=== PATIENT | male | born 1935 | race Caucasian/White ===

== ENCOUNTER 2018-10-14 09:02 | Inpatient (IN) | payer MEDICARE, OTHER ==
[~2018-10-14] VITALS: Ht 177.8 cm; Wt 83.9 kg
[2018-10-14] MEDS ORDERED: SODIUM CHLORIDE 0.9% 1000ML 1,000 ML IV ONE ×3 (10:15→17:45)
[2018-10-14] MEDS ORDERED: DICYCLOMINE HCL 20 MG/2 ML VIAL IM ONE ×2 (10:15→14:30)
[2018-10-14] MEDS ORDERED: ONDANSETRON HCL INJ 2 MG/ML VIAL IV ONE ×2 (10:30→14:30)
[2018-10-14] MEDS ORDERED: PIPER-TAZ 3.375 GM 50 ML IV ONE ×2 (10:30→14:30)
--- NOTE | 2018-10-14 11:28 | Diagnostic Imaging Report ---
Examination: Single AP view of the chest. COMPARISON: None. INDICATION: Preop evaluation, gallbladder inflammation DISCUSSION: The lungs are well-inflated though there is slight right hemidiaphragmatic elevation with linear opacities in the lung bases, right greater than left. No airspace consolidation or sizable pleural effusion. No pneumothorax. Tortuous thoracic aorta with atherosclerotic calcification. Normal heart size without overt pulmonary edema. No acute osseous abnormality. Circular radiopacities projecting over the left upper quadrant may reflect bowel contents. IMPRESSION: Subsegmental atelectasis in the lower lobes. Otherwise no acute cardiopulmonary abnormality. Signed by: Dr. Pio Pedro M.D. on 10/14/2018 11:25 AM
[2018-10-14 11:30] LABS: BASOPHILS % 0.2 % (0.0-1.0); EOSINOPHILS # (AUTO) 0.1 (0.0-0.4); HEMATOCRIT 33.5 % (38.2-49.6); HEMOGLOBIN 11.2 g/dL (14.0-18.0); LYMPHOCYTES # (AUTO) 0.3 (1.0-3.2); LYMPHOCYTES % 2.5 % (18.0-39.1); MEAN CORPUSCULAR HGB CONC 33.4 g/dL (31-35); MEAN CORPUSCULAR VOLUME 101.8 fL (81-99); MONOCYTES # (AUTO) 1.1 (0.2-0.8); NEUTROPHILS # (AUTO) 12.1 (2.1-6.9); NEUTROPHILS % 87.9 % (38.7-80.0); PLATELET COUNT 208 x10e3/uL (140-360); RED BLOOD COUNT 3.29 x10e6/uL (4.3-5.7)
[2018-10-14 11:41] LABS: INR 1.08
[2018-10-14 11:42] LABS: PARTIAL THROMBOPLASTIN TIME 38.3 seconds (23.8-35.5)
[2018-10-14 11:43] LABS: BILIRUBIN,URINE NEGATIVE (NEGATIVE); CLARITY,URINE SL CLOUDY (CLEAR); COLOR,URINE YELLOW (YELLOW); KETONES,URINE NEGATIVE (NEGATIVE); LEUKOCYTE ESTERASE ,URINE NEGATIVE (NEGATIVE); NITRITE,URINE NEGATIVE (NEGATIVE); PROTEIN,URINE DIPSTICK 2+ (NEGATIVE); URINE UROBILINOGEN 0.2 mg/dL (0.2 - 1)
[2018-10-14 11:44] LABS: AMORPHOUS SEDIMENT,URINE MODERATE (FEW); BACTERIA,URINE MANY /HPF; RBC,URINE 0-5 /HPF (0-5)
[2018-10-14 11:52] LABS: ALBUMIN 2.8 g/dL (3.5-5.0); ALBUMIN/GLOBULIN RATIO 0.6 (0.8-2.0); ANION GAP 17.7 mmol/L (8-16); CALCIUM 9.9 mg/dL (8.4-10.2); CREATININE, SERUM 2.04 mg/dL (0.72-1.25); POTASSIUM 3.7 mmol/L (3.5-5.1)
--- NOTE | 2018-10-14 12:07 | Diagnostic Imaging Report ---
EXAM: Right Upper Quadrant Ultrasound INDICATION: ^Cholecystitis COMPARISON: None. TECHNIQUE: Transverse and longitudinal images of the right upper abdomen were obtained. FINDINGS: Liver: Size: 14.5 cm in the right midclavicular line, normal Appearance: Normal echogenicity, smooth contour Mass: No focal masses Gallbladder: Stones/Sludge: 2.4 cm echogenic stone noted in the gallbladder neck. Small amount of intraluminal sludge. Wall: 0.4 cm Appearance: Trace free fluid noted adjacent to the anterior gallbladder wall. Sonographic Don's Sign: Negative Bile Ducts: Intrahepatic Ducts: No dilatation Extrahepatic Ducts: Common bile duct measures 0.3 cm, no dilatation Pancreas: Visualized portions of the pancreatic neck and proximal body are normal. Kidneys: Length: Right 11.7 cm Echogenicity: Normal Collecting System: No hydronephrosis Stone: None Cyst/Mass: 0.8 x 0.6 x 0.8 cm cystic, anechoic lesion in the right interpolar region, consistent with a simple cyst Vessels: Aorta: Visualized portions are normal Inferior Vena Cava: Visualized portions are normal Main Portal Vein: 0.7 cm, normal size with hepatopetal flow. Free Fluid: No ascites or pleural effusion IMPRESSION: 1. Cholelithiasis and sludge with mild gallbladder wall thickening. Sonographic Don's sign is negative in this nonmedicated patient, which speaks against acute cholecystitis. No intra or extrahepatic biliary ductal dilation. Signed by: Dr. Fredy Fernandes M.D. on 10/14/2018 12:03 PM
[2018-10-14] MEDS ORDERED: LIDOCAINE HCL 2% LOCAL INJ 5 ML SDV VIAL INJ ONE (14:16)
[2018-10-14] MEDS ORDERED: DEXAMETHASONE SOD PHOS INJ 4 MG/ML VIAL ONE (14:16)
[2018-10-14] MEDS ORDERED: ONDANSETRON HCL INJ 2 MG/ML VIAL ONE (14:16)
[2018-10-14] MEDS ORDERED: SUCCINYLCHOLINE 200 MG/10 ML SYR ONE (14:16)
[2018-10-14] MEDS ORDERED: ROCURONIUM BROMIDE 10 MG/ML 5ML VIAL ONE (14:16)
[2018-10-14] MEDS ORDERED: LABETALOL HCL 5 MG/ML 20ML VIAL ONE (14:16)
[2018-10-14] MEDS ORDERED: PROPOFOL IV EMULSION 10 MG/ML 20 ML VIAL ONE (14:16)
[2018-10-14] MEDS ORDERED: SEVOFLURANE INHAL SOLN 250 ML PEN BTL ONE (14:16)
[2018-10-14] MEDS ORDERED: NEOSTIGMINE 5 MG/5ML SYR ONE (14:16)
[2018-10-14] MEDS ORDERED: PHENYLEPHRINE HCL 1% 10 MG/ML VIAL ONE (14:16)
[2018-10-14] MEDS ORDERED: GLYCOPYRROLATE INJ 1MG/ 5 ML SYR ONE (14:16)
[2018-10-14] MEDS ORDERED: FOLIC ACID1 MG PO (14:25)
[2018-10-14] MEDS ORDERED: METOPROLOL SUCC50 MG PO (14:25)
[2018-10-14] MEDS ORDERED: FUROSEMIDE40 MG PO (14:25)
[2018-10-14] MEDS ORDERED: NAMENDA PO (14:25)
[2018-10-14] MEDS ORDERED: BENICAR HCT 401 EACH PO (14:25)
[2018-10-14] MEDS ORDERED: NEXIUM40 MG PO (14:25)
[2018-10-14] MEDS ORDERED: POTASSIUM CHLO20 ME1 PO (14:25)
[2018-10-14] MEDS ORDERED: DILTIAZEM 24HR180 M1 PO (14:25)
[2018-10-14] MEDS ORDERED: ULORIC40 MG PO (14:25)
[2018-10-14] MEDS ORDERED: CLONIDINE HCL0.1 MG PO (14:25)
[2018-10-14] MEDS ORDERED: CRESTOR10 MG PO (14:25)
[2018-10-14] MEDS ORDERED: ONDANSETRON HCL INJ 2 MG/ML VIAL IV PRN (17:45)
[2018-10-14] MEDS ORDERED: SODIUM CHLORIDE FLUSH 10 ML SYR INJ PRN (17:45)
[2018-10-14] MEDS ORDERED: MORPHINE SULFATE 2 MG/ML SYR IV PRN (18:00)
[2018-10-14] MEDS: SODIUM CHLORIDE 0.9% 1000ML 1,000 ML IV SCH (18:11)
[2018-10-14] MEDS ORDERED: TEMAZEPAM 15 MG CAP PO PRN (18:30)
[2018-10-14] MEDS ORDERED: FAMOTIDINE 20 MG/2 ML VIAL IV SCH (18:30)
--- OUTSIDE RECORDS SUMMARY | 2018-10-14 19:10 | XMS REPORT ---
[facility] Address Unknown Phone Unavailable Care Team Providers Care Rfid Technician Name Role Phone Tom FRANCO Unavailable Unavailable Problems This patient has no known problems. Allergies, Adverse Reactions, Alerts This patient has no known allergies or adverse reactions. Medications This patient has no known medications. Results Test Description Test Time Test Comments Text Results Atomic Results Result Comments US GALLBLADDER 2018-10-14 11:59:00 [place] [address] Patient Name: KIT KENDRICK MR #: [id number] : 1935 Age/Sex: 82/M Req #: [id number] Adm Physician: Ordered by: DARRION FRANCO MD Report #: [id number] Location: ER Room/Bed: Procedure: [id number] US/US GALLBLADDER Exam Date: Exam Time: REPORT STATUS: Signed EXAM: Right Upper Quadrant Ultrasound INDICATION: Cholecystitis COMPARISON: None. TECHNIQUE: Transverse and longitudinal images of the right upper abdomen were obtained. FINDINGS: Liver: Size: 14.5 cm in the right midclavicular line, normal Appearance: Normal echogenicity, smooth contour Mass: No focal masses Gallbladder: Stones/Sludge: 2.4 cm echogenic stone noted in the gallbladder neck. Small amount of intraluminal sludge. Wall: 0.4 cm Appearance: Trace free fluid noted adjacent to the anterior gallbladder wall. Sonographic Don's Sign: Negative Bile Ducts: Intrahepatic Ducts: No dilatation Extrahepatic Ducts: Common bile duct measures 0.3 cm, no dilatation Pancreas: Visualized portions of the pancreatic neck and proximal body are normal. Kidneys: Length: Right 11.7 cm Echogenicity: Normal Collecting System: No hydronephrosis Stone: None Cyst/Mass: 0.8 x 0.6 x 0.8 cm cystic, anechoic lesion in the right interpolar region, consistent with a simple cyst Vessels: Aorta: Visualized portions are normal Inferior Vena Cava: Visualized portions are normal Main Portal Vein: 0.7 cm, normal size with hepatopetal flow. Free Fluid: No ascites or pleural effusion IMPRESSION: 1. Cholelithiasis and sludge with mild gallbladder wall thickening. Sonographic Don's sign is negative in this nonmedicated patient, which speaks against acute cholecystitis. No intra or extrahepatic biliary ductal dilation. Signed by: Dr. Corrie Fernandes M.D. on 10/14/2018 12:03 PM Dictated By: CORRIE FERNANDES MD 1203 Transcribed By: SRINIVASAN on 10/14/18 1203 COPY TO: DARRION FRANCO MD CHEST SINGLE (PORTABLE) 2018-10-14 11:22:00 [place] [address] Patient Name: KIT KENDRICK MR #: [id number] : 1935 Age/Sex: 82/M Req #: [id number] Adm Physician: Ordered by: DARRION FRANCO MD Report #: [id number] Location: ER Room/Bed: Procedure: [id number] DX/CHEST SINGLE (PORTABLE) Exam Date: 10/14/18 Exam Time: 1050 REPORT STATUS: Signed Examination: Single AP view of the chest. COM PARISON: None. INDICATION: Preop evaluation, gallbladder inflammation DISCUSSION: The lungs are well-inflated though there is slight right hemidiaphragmatic elevation with linear opacities in the lung bases, right greater than left. No airspace consolidation or sizable pleural effusion. No pneumothorax. Tortuous thoracic aorta with atherosclerotic calcification. Normal heart size without overt pulmonary edema. No acute osseous abnormality. Circular radiopacities projecting over the left upper quadrant may reflect bowel contents. IMPRESSION: Subsegmental atelectasis in the lower lobes. Otherwise no acute cardiopulmonary abnormality. Signed by: Dr. Jocelyn White M.D. on 10/14/2018 11:25 AM Dictated By: JOCELYN WHITE MD 112 Transcribed By: SRINIVASAN on 10/14/181124 COPY TO: DARRION FRANCO MD
[2018-10-14 20:00] VITALS: BP 128/68
[2018-10-14] MEDS: PIPER-TAZ 3.375 GM 50 ML IV SCH (21:45)
[2018-10-14 22:00] VITALS: BP 135/64
[2018-10-15] VITALS (15 sets, daily range): BP systolic 94–152; BP diastolic 55–71
[2018-10-15] MEDS ORDERED: HYDRALAZINE HCL 20 MG/ML VIAL IV PRN (05:45)
[2018-10-15 06:00] LABS: BASOPHILS % 0.3 % (0.0-1.0); EOSINOPHILS # (AUTO) 0.2 (0.0-0.4); EOSINOPHILS % 1.5 % (0.0-6.0); HEMATOCRIT 28.5 % (38.2-49.6); HEMOGLOBIN 9.4 g/dL (14.0-18.0); LYMPHOCYTES # (AUTO) 0.6 (1.0-3.2); LYMPHOCYTES % 5.4 % (18.0-39.1); MEAN CORPUSCULAR HEMOGLOBIN 34.1 pg (28-32); MEAN CORPUSCULAR VOLUME 103.3 fL (81-99); MONOCYTES # (AUTO) 1.3 (0.2-0.8); MONOCYTES % 12.5 % (4.4-11.3); NEUTROPHILS # (AUTO) 8.4 (2.1-6.9); NEUTROPHILS % 79.5 % (38.7-80.0); PLATELET COUNT 185 x10e3/uL (140-360); RED BLOOD COUNT 2.76 x10e6/uL (4.3-5.7)
[2018-10-15 06:05] LABS: ALBUMIN 2.1 g/dL (3.5-5.0); ALBUMIN/GLOBULIN RATIO 0.5 (0.8-2.0); ANION GAP 17.8 mmol/L (8-16); CALCIUM 8.7 mg/dL (8.4-10.2); CREATININE, SERUM 1.36 mg/dL (0.72-1.25); POTASSIUM 3.8 mmol/L (3.5-5.1)
[2018-10-15] MEDS: PIPER-TAZ 3.375 GM 50 ML IV SCH ×3 (06:54→22:12)
[2018-10-15] MEDS: SODIUM CHLORIDE 0.9% 1000ML 1,000 ML IV SCH ×3 (07:32→22:46)
[2018-10-15] MEDS ORDERED: PANTOPRAZOLE SOD 40 MG TABEC PO SCH (09:00)
[2018-10-15] MEDS: DILTIAZEM HCL 180 MG CAP ER PO SCH (09:00)
[2018-10-15] MEDS: METOPROLOL SUCCINATE 50 MG TAB XL PO SCH (09:00)
[2018-10-15] MEDS: FEBUXOSTAT 80 MG TAB PO SCH (09:00)
[2018-10-15] MEDS ORDERED: POTASSIUM CHLORIDE 20 MEQ TAB CR PO SCH (09:00)
[2018-10-15] MEDS ORDERED: FOLIC ACID 1 MG TAB PO SCH (09:00)
[2018-10-15] MEDS ORDERED: SIMVASTATIN 40 MG TAB PO SCH (09:00)
[2018-10-15] MEDS: FUROSEMIDE 40 MG TAB PO SCH (09:00)
[2018-10-15] MEDS ORDERED: BUPIVACAINE 0.25%/EPI 30ML SDV INJ ONE (10:54)
[2018-10-15] MEDS ORDERED: HYDROMORPHONE 1MG/1ML INJ IV PRN (13:00)
[2018-10-15] MEDS ORDERED: ACETAMINOPHEN 1000 MG/100 ML IV PRN (13:00)
[2018-10-15] MEDS ORDERED: HYDROMORPHONE 2MG/ML 2 MG/ML ML IV PRN (13:15)
[2018-10-15] MEDS ORDERED: LABETALOL HCL 20 MG/4 ML SYRINGE IV ONE (13:22)
--- NOTE | 2018-10-15 13:34 | Operative Report ---
DATE OF PROCEDURE: October 15, 2018 PREOPERATIVE DIAGNOSIS: Acute cholecystitis and cholelithiasis. POSTOPERATIVE DIAGNOSIS: Acute purulent gangrenous cholecystitis and cholelithiasis. OPERATION PERFORMED: Laparoscopic cholecystectomy. PROGRESS DEVELOPER: Dr. Arcenio Camara and ALYSON Wu. ANESTHESIA: General. COMPLICATIONS: None. ESTIMATED BLOOD LOSS: Less than 300 mL. DESCRIPTION OF PROCEDURE: With the patient lying in bed in the supine position under good general endotracheal anesthesia, the abdomen was prepped with Betadine solution and draped in the usual manner. A Veress needle was introduced into the right upper quadrant. Pneumoperitoneum was established without any difficulty. A 5-mm trocar was placed in the right subcostal region and a 5 mm video laparoscope was placed into the intra-abdominal cavity. Video laparoscopy at this point revealed no adhesions to the subumbilical area from the patient's previous surgery. An 11-mm trocar was then placed into the umbilicus and a 10 mm video laparoscope was placed into the intra-abdominal cavity. Under direct vision, 2 more 5-mm trocars were placed in the right subcostal region. An extra 5-mm trocar was placed into the left upper abdomen in order to be able to retract the omentum and transverse colon. Laparoscopy at this point revealed that the gallbladder was totally covered up with adhesions from the transverse colon and the omentum. Once this was slowly and carefully peeled back, the gallbladder was found to be gangrenous thick-walled. There was a lot of fibrinous purulent material around the gallbladder. All of the adhesions to the gallbladder were then slowly and carefully taken down to the neck. The gallbladder was then decompressed with a needle, because it was hydropic and tensely distended and could not be grasped. The wall of the gallbladder was gangrenous in multiple areas. The peritoneum overlying the neck of the gallbladder was then opened and the cystic duct was identified. The cystic duct was followed to its junction with the common duct. Cystic duct was then circumferentially dissected away from the common duct, doubly clipped and divided. The cystic artery was similarly doubly clipped and divided. The gallbladder was then slowly and carefully taken off of the liver bed. The back wall of the gallbladder was necrotic in multiple areas, and there was just gross pus in the gallbladder wall. Nonetheless, the gallbladder was slowly and carefully from the liver bed and totally and completely removed. Hemostasis was ascertained. The gallbladder was then placed in a pouch and removed through the umbilical port. Video laparoscopy was then again carried out. Hemostasis was ascertained. All of the area was then thoroughly irrigated, and all of the purulent and necrotic material was removed. All of the excess fluid was aspirated. Hemostasis was then ascertained. A 10 flat Davie-Schreiber drain was then left in the hepatorenal fossa and brought out through the lateral most trocar port on the right side. The trocars were then removed and the pneumoperitoneum was evacuated. The midline fascia at the umbilicus was then closed with a figure-of-8 of 0 Vicryl. All layers were infiltrated on the way out with a solution of 0.25% Marcaine. Subcutaneous tissue was approximated with 3-0 Vicryl and the skin was closed with subcuticular 5-0 Vicryl. Benzoin, Steri-Strips and Band-Aids were applied. The sponge, lap and needle count was correct. The patient tolerated the procedure well and returned to the recovery room in stable condition. Job#: [id number] BERNARDA
[2018-10-15] MEDS ORDERED: ATROPINE SULFATE 0.1 MG/ML 10ML SYR ONE (13:42)
[2018-10-15] MEDS: PANTOPRAZOLE 40 MG 10ML VIAL IV SCH (16:40)
[2018-10-15] MEDS ORDERED: MIDAZOLAM HCL 2 MG/2 ML VIAL ONE (19:02)
[2018-10-15] MEDS ORDERED: FENTANYL CITRATE/PF 100MCG/2 ML INJ ONE (19:02)
[2018-10-15] MEDS: METRONIDAZOLE 500MG/NS 100ML 100 ML IV SCH (19:03)
[2018-10-15] MEDS: HYDROCODONE/APAP 7.5MG-325MG 1 EA TAB PO PRN (20:09)
[2018-10-16] VITALS (19 sets, daily range): BP systolic 109–143; BP diastolic 48–76
[2018-10-16] MEDS: METRONIDAZOLE 500MG/NS 100ML 100 ML IV SCH ×4 (00:49→18:19)
[2018-10-16 04:43] LABS: BASOPHILS % 0.2 % (0.0-1.0); HEMATOCRIT 27.8 % (38.2-49.6); LYMPHOCYTES # (AUTO) 0.4 (1.0-3.2); LYMPHOCYTES % 3.5 % (18.0-39.1); MEAN CORPUSCULAR HEMOGLOBIN 34.2 pg (28-32); MEAN CORPUSCULAR HGB CONC 32.4 g/dL (31-35); MEAN CORPUSCULAR VOLUME 105.7 fL (81-99); MONOCYTES # (AUTO) 0.5 (0.2-0.8); MONOCYTES % 4.9 % (4.4-11.3); NEUTROPHILS # (AUTO) 9.5 (2.1-6.9); NEUTROPHILS % 90.9 % (38.7-80.0); PLATELET COUNT 219 x10e3/uL (140-360); RED BLOOD COUNT 2.63 x10e6/uL (4.3-5.7); RED CELL DISTRIBUTION WIDTH 14.1 % (11.7-14.4)
[2018-10-16 05:10] LABS: ALBUMIN/GLOBULIN RATIO 0.5 (0.8-2.0); ANION GAP 19.2 mmol/L (8-16); CALCIUM 8.5 mg/dL (8.4-10.2); CREATININE, SERUM 1.93 mg/dL (0.72-1.25); POTASSIUM 4.2 mmol/L (3.5-5.1)
[2018-10-16] MEDS: PIPER-TAZ 3.375 GM 50 ML IV SCH ×3 (06:24→22:20)
[2018-10-16] MEDS: DILTIAZEM HCL 180 MG CAP ER PO SCH (08:39)
[2018-10-16] MEDS: FEBUXOSTAT 80 MG TAB PO SCH (08:39)
[2018-10-16] MEDS: METOPROLOL SUCCINATE 50 MG TAB XL PO SCH (08:39)
[2018-10-16] MEDS: SODIUM CHLORIDE 0.9% 1000ML 1,000 ML IV SCH ×2 (08:39→22:18)
[2018-10-16] MEDS: FUROSEMIDE 40 MG TAB PO SCH (08:39)
[2018-10-16] MEDS: PANTOPRAZOLE 40 MG 10ML VIAL IV SCH (12:52)
[2018-10-16] MEDS: HYDROCODONE/APAP 7.5MG-325MG 1 EA TAB PO PRN ×2 (13:09→18:20)
[2018-10-17] VITALS (7 sets, daily range): BP systolic 112–143; BP diastolic 53–84
[2018-10-17] MEDS: METRONIDAZOLE 500MG/NS 100ML 100 ML IV SCH ×3 (00:09→11:45)
[2018-10-17] MEDS: SODIUM CHLORIDE 0.9% 1000ML 1,000 ML IV SCH ×2 (04:46→11:45)
[2018-10-17 05:04] LABS: BASOPHILS % 0.2 % (0.0-1.0); EOSINOPHILS % 0.2 % (0.0-6.0); HEMATOCRIT 24.8 % (38.2-49.6); HEMOGLOBIN 8.5 g/dL (14.0-18.0); LYMPHOCYTES # (AUTO) 0.8 (1.0-3.2); MEAN CORPUSCULAR HGB CONC 34.3 g/dL (31-35); MONOCYTES # (AUTO) 0.9 (0.2-0.8); MONOCYTES % 7.3 % (4.4-11.3); NEUTROPHILS # (AUTO) 10.9 (2.1-6.9); NEUTROPHILS % 85.5 % (38.7-80.0); PLATELET COUNT 261 x10e3/uL (140-360); RED BLOOD COUNT 2.43 x10e6/uL (4.3-5.7); RED CELL DISTRIBUTION WIDTH 14.4 % (11.7-14.4)
[2018-10-17 05:09] LABS: MEAN CORPUSCULAR VOLUME 102.1 fL (81-99)
[2018-10-17 05:23] LABS: ALBUMIN/GLOBULIN RATIO 0.5 (0.8-2.0); ANION GAP 12.6 mmol/L (8-16); CALCIUM 8.3 mg/dL (8.4-10.2); CREATININE, SERUM 1.56 mg/dL (0.72-1.25); POTASSIUM 3.6 mmol/L (3.5-5.1)
[2018-10-17] MEDS: PIPER-TAZ 3.375 GM 50 ML IV SCH ×2 (06:26→14:51)
[2018-10-17] MEDS: FUROSEMIDE 40 MG TAB PO SCH (08:50)
[2018-10-17] MEDS: DILTIAZEM HCL 180 MG CAP ER PO SCH (08:50)
[2018-10-17] MEDS: METOPROLOL SUCCINATE 50 MG TAB XL PO SCH (08:51)
[2018-10-17] MEDS: FEBUXOSTAT 80 MG TAB PO SCH (09:27)
[2018-10-17] MEDS: PANTOPRAZOLE 40 MG 10ML VIAL IV SCH (14:51)
== END 2018-10-17 18:16 | disposition home or self-care (01) | DRG 419 ==
LOC: ER 09:02 → ERHOLD 19:07 → MED/SURG 20:11 → ICU 10-15 14:13 → MED/SURG2 10-16 21:49
PROVIDERS: ADMIT Internal Medicine; ATTEND Internal Medicine
PROC: 0FT44ZZ Resection of Gallbladder, Percutaneous Endoscopic Approach (ICD-10-PCS; principal; 2018-10-15 12:30)
DX: K80.00 Calculus of gallbladder with acute cholecystitis without obstruction (principal); I12.9 Hypertensive chronic kidney disease with stage 1 through stage 4 chronic kidney disease, or unspecified chronic kidney disease; N18.3 Chronic kidney disease, stage 3 (moderate); E78.5 Hyperlipidemia, unspecified; K21.9 Gastro-esophageal reflux disease without esophagitis; M10.9 Gout, unspecified; D64.9 Anemia, unspecified
CPT/HCPCS: 36415; 71045; 76705; 80053; 81001; 82948; 83690; 84484; 85025; 85610; 85730; 88304; 93005; 99284; C1766; J0500; J1100; J2001; J2250; J2370; J2405; J2543; J7030

== ENCOUNTER → 2021-05-29 | Outpatient (CLI) | payer MEDICARE ==
[~2021-05-29] MED LIST: BENICAR HCT 401 EACH PO; CLONIDINE HCL0.1 MG PO; CRESTOR10 MG PO; DILTIAZEM 24HR180 M1 PO; FOLIC ACID1 MG PO; FUROSEMIDE40 MG PO; METOPROLOL SUCC50 MG PO; NAMENDA PO; NEXIUM40 MG PO; POTASSIUM CHLO20 ME1 PO; ULORIC40 MG PO
== END ==
LOC: DX 10:37
PROVIDERS: ATTEND Family Medicine
DX: R13.10 Dysphagia, unspecified (principal)
CPT/HCPCS: 74230

== ENCOUNTER 2022-03-04 11:20 | Emergency (ER) | payer MEDICARE ==
[~2022-03-04] VITALS: Ht 177.8 cm; Wt 83.0 kg
[2022-03-04] MEDS ORDERED: SODIUM CHLORIDE 0.9% 500ML 500 ML IV STA (11:46)
[2022-03-04] MEDS ORDERED: Morphine 4mg Syringe 4 MG/ML INJ IV STA (11:46)
[2022-03-04] MEDS ORDERED: MULTI-VITAMIN1 EACH PO (11:51)
[2022-03-04] MEDS ORDERED: VITAMIN B6100 MG/2.5 (11:51)
[2022-03-04] MEDS ORDERED: PHILLIPS'400 MG/5 M (11:51)
[2022-03-04] MEDS ORDERED: VITAMIN D250 MCG (11:51)
[2022-03-04] MEDS ORDERED: MAGNESIUM OXID400 MG PO (11:51)
[2022-03-04] MEDS ORDERED: LEVOTHYROXINE25 MC1 (11:51)
[2022-03-04] MEDS ORDERED: ARICEPT10 MG PO (11:51)
[2022-03-04] MEDS ORDERED: AURYXIA210 MG (11:51)
[2022-03-04] MEDS ORDERED: [UNRECOGNIZED DRUG - OTHER] (11:51)
[2022-03-04] MEDS ORDERED: FISH OIL 1,0001 EAC2 (11:51)
[2022-03-04] MEDS ORDERED: ONDANSETRON HCL INJ 2MG/ML 2ML 2 MG/ML VIAL IV ONE (12:00)
[2022-03-04] MEDS ORDERED: KETOROLAC TROMETHAMINE 30 MG/ML VIAL IV ONE (12:00)
[2022-03-04] MEDS ORDERED: ONDANSETRON HCL INJ 2MG/ML 2ML 2 MG/ML VIAL ONE (12:05)
[2022-03-04] MEDS ORDERED: SODIUM CHLORIDE 0.9% 500ML 500 ML ONE (12:06)
[2022-03-04] MEDS ORDERED: Morphine 4mg Syringe 4 MG/ML INJ ONE (12:06)
[2022-03-04] MEDS ORDERED: KETOROLAC TROMETHAMINE 30 MG/ML VIAL ONE (12:06)
[2022-03-04] MEDS ORDERED: CEFTRIAXONE 1 GM VIAL IV ONE (13:15)
[2022-03-04] MEDS ORDERED: ONDANSETRON ODT4 MG PO (14:23)
[2022-03-04] MEDS ORDERED: CEFDINIR300 MG PO (14:23)
[2022-03-04] MEDS ORDERED: ACETAMINOPHEN-1 EAC4 PO (14:23)
== END 2022-03-04 14:33 | disposition home or self-care (01) ==
LOC: FSED 11:45
DX: N50.811 Right testicular pain (principal); N45.1 Epididymitis; R11.2 Nausea with vomiting, unspecified; F03.90 Unspecified dementia, unspecified severity, without behavioral disturbance, psychotic disturbance, mood disturbance, and anxiety; I10 Essential (primary) hypertension; E78.5 Hyperlipidemia, unspecified; K21.9 Gastro-esophageal reflux disease without esophagitis; M10.9 Gout, unspecified; Z85.46 Personal history of malignant neoplasm of prostate
CPT/HCPCS: 76870; 80053; 81003; 85025; 96374; 96375; 99284; J0696; J1885; J2270; J2405; J7040

== ENCOUNTER 2022-12-28 18:36 | Emergency (ER) | payer MEDICARE ==
[~2022-12-28] VITALS: Ht 177.8 cm; Wt 78.5 kg
[~2022-12-28 18:36] MED LIST changes: +ACETAMINOPHEN-1 EAC4 PO; +ARICEPT10 MG PO; +AURYXIA210 MG; +CEFDINIR300 MG PO; +FISH OIL 1,0001 EAC2; +LEVOTHYROXINE25 MC1; +MAGNESIUM OXID400 MG PO; +MULTI-VITAMIN1 EACH PO; +ONDANSETRON ODT4 MG PO; +PHILLIPS'400 MG/5 M; +VITAMIN B6100 MG/2.5; +VITAMIN D250 MCG; +[UNRECOGNIZED DRUG - OTHER]
[2022-12-28 19:47] VITALS: BP 139/64
[2022-12-28] MEDS ORDERED: HYDRALAZINE HCL 20 MG/ML VIAL IV STA (23:50)
[2022-12-29] MEDS ORDERED: HYDRALAZINE HCL 20 MG/ML VIAL ONE (00:09)
== END 2022-12-29 00:23 | disposition other institution (70) ==
LOC: FSED 18:55
DX: S00.83XA Contusion of other part of head, initial encounter (principal); R55 Syncope and collapse; I12.9 Hypertensive chronic kidney disease with stage 1 through stage 4 chronic kidney disease, or unspecified chronic kidney disease; N18.9 Chronic kidney disease, unspecified; I10 Essential (primary) hypertension; E78.5 Hyperlipidemia, unspecified; E03.9 Hypothyroidism, unspecified; F03.90 Unspecified dementia, unspecified severity, without behavioral disturbance, psychotic disturbance, mood disturbance, and anxiety; M10.9 Gout, unspecified; Z20.822 Contact with and (suspected) exposure to COVID-19; Z85.46 Personal history of malignant neoplasm of prostate
CPT/HCPCS: 70450; 80053; 81003; 82553; 84484; 85025; 93005; 99284; J0360; U0002